=== PATIENT | female | born 1970 | race African-American/Black ===

== ENCOUNTER 2020-07-16 06:40 | Emergency (ER) | payer SELFPAY ==
[2020-07-16] MEDS ORDERED: Lidocaine 1% w/Epinephrine 1:100K 20 ML VIAL ONE (06:59)
== END 2020-07-16 07:55 | disposition home or self-care (01) ==
LOC: ERS 06:40
DX: L02.416 Cutaneous abscess of left lower limb (principal); F17.210 Nicotine dependence, cigarettes, uncomplicated; F17.290 Nicotine dependence, other tobacco product, uncomplicated
CPT/HCPCS: 10061

== ENCOUNTER 2021-12-27 16:08 | Inpatient (IN) | payer SELFPAY ==
[2021-12-27 16:37] LABS: Hemoglobin 15.1 g/dL (12.0-16.0); Mean Corpuscular Hemoglobin 28.5 pg (27.0-31.0); Mean Corpuscular Volume 86.5 fL (78.0-98.0); Mean Platelet Volume 7.9 fL (7.4-10.4); Platelet Count 271 thou/uL (130-400)
[2021-12-27 16:55] LABS: Lymphocytes 41 % (21-51); MDiff Complete? YES; Monocytes 6 % (0-10); Neutrophil 34 % (42-75); Platelet Morphology Comment Appears Adequate; RBC Morphology Normal; Reactive Lymphocytes 18 % (0-10)
[2021-12-27 16:56] LABS: ALT (SGPT) 20 U/L (8-55); AST (SGOT) 29 U/L (5-34); Albumin 4.5 g/dL (3.5-5.0); Alkaline Phosphatase 116 U/L (40-110); Anion Gap 15 mmol/L (10-20); BUN (Urea Nitrogen) 8 mg/dL (7.0-18.7); Bilirubin, Total 0.4 mg/dL (0.2-1.2); Calc. Creatinine Clearance 0 mL/min (70-130); Calcium 10.3 mg/dL (7.8-10.44); Carbon Dioxide 26 mmol/L (22-29); Chloride 101 mmol/L (98-107); Estimated GFR 67; Globulin 3.2 g/dL (2.4-3.5); Glucose 189 mg/dL (70-105); Lipase 18 U/L (8-78); Potassium 4.3 mmol/L (3.5-5.1); Protein, Total 7.7 g/dL (6.0-8.3); Sodium 138 mmol/L (136-145)
[2021-12-27] MEDS ORDERED: Heparin 25,000 units/D5W 500 ML ONE (17:33)
[2021-12-27] MEDS ORDERED: Aspirin Chewable 81 MG TAB ONE (17:35)
[2021-12-27 17:39] LABS: CKMB 26.4 ng/mL (0-6.6)
[2021-12-27] MEDS ORDERED: Heparin 10,000 UNITS/ 10 ML VIAL ONE (17:44)
[2021-12-27 18:04] LABS: PTT 32.4 sec (22.9-36.1); Prothrombin Time 12.8 sec (12.0-14.7)
[2021-12-27] MEDS ORDERED: Enoxaparin Sodium 60 MG/0.6 ML SYRINGE ONE (18:06)
[2021-12-27] MEDS ORDERED: Metoprolol Tartrate 5 MG/5 ML VIAL ONE (18:06)
[2021-12-27 18:43] LABS: Hemoglobin A1c 8.5 % (4.0-6.0)
[2021-12-27] MEDS ORDERED: Ondansetron PF 4 MG/2 ML Vial IVP PRN ×2 (20:00→20:33)
[2021-12-27] MEDS ORDERED: Acetaminophen 325 MG TAB PO PRN ×2 (20:00→20:33)
[2021-12-27] MEDS ORDERED: Ondansetron ODT 4 MG TAB SL PRN (20:00)
[2021-12-27 20:31] LABS: Troponin I 1.549 ng/mL (< 0.028)
[2021-12-27] MEDS ORDERED: Bisacodyl 5 MG TAB PO PRN (20:33)
[2021-12-27] MEDS ORDERED: Morphine 2 MG/ML VIAL SLOW IVP PRN (20:33)
[2021-12-27] MEDS ORDERED: Nitroglycerin 0.4 MG TAB (25 Tab Bottle) SL PRN (20:33)
[2021-12-27 21:12] VITALS: BMI 26.4
[2021-12-27] MEDS: Enoxaparin Sodium 60 MG/0.6 ML SYRINGE SC SCH (22:31)
[2021-12-27] MEDS: Nicotine 21 MG PATCH TD SCH (22:32)
[2021-12-27 23:37] LABS: Troponin I 2.543 ng/mL (< 0.028)
[2021-12-28 04:58] LABS: Anion Gap 15 mmol/L (10-20); BUN (Urea Nitrogen) 10 mg/dL (7.0-18.7); Calc. Creatinine Clearance 67 mL/min (70-130); Calcium 9.4 mg/dL (7.8-10.44); Carbon Dioxide 23 mmol/L (22-29); Cardiac Risk 9.6 (Less than 4.5); Chloride 103 mmol/L (98-107); Cholesterol 307 mg/dl (< 200 Desired); Estimated GFR 70; Glucose 200 mg/dL (70-105); HDL Cholesterol 32 mg/dL (>60 Neg Risk); Potassium 4.4 mmol/L (3.5-5.1); Sodium 137 mmol/L (136-145); Triglycerides 563 mg/dL (Less than 150)
[2021-12-28 05:30] LABS: Amphetamine Not Detected (NotDetected); Barbiturates Screen Not Detected (NotDetected); Benzodiazepine Screen Not Detected (NotDetected); Cocaine Metabolite Screen Not Detected (NotDetected); Methadone Not Detected (NotDetected); Methamphetamine Not Detected (NotDetected); Opiate Screen Not Detected (NotDetected); Oxycodone Screen Not Detected (NotDetected); Phencyclidine (PCP) Not Detected (NotDetected); THC/Cannabinoid Screen Not Detected (NotDetected); Tricyclic Screen Not Detected (NotDetected)
[2021-12-28 05:55] LABS: Band 2 % (5-11); Eosinophils 4 % (0-10); Hemoglobin 14.6 g/dL (12.0-16.0); Lymphocytes 57 % (21-51); MDiff Complete? YES; Mean Corpuscular HGB CONC 32.9 g/dL (32.0-36.0); Mean Corpuscular Hemoglobin 28.3 pg (27.0-31.0); Mean Corpuscular Volume 86.2 fL (78.0-98.0); Mean Platelet Volume 8.1 fL (7.4-10.4); Monocytes 5 % (0-10); Neutrophil 32 % (42-75); Platelet Count 240 thou/uL (130-400); RBC Distribution Width 13.6 % (11.5-14.5); Red Blood Cell (RBC) Count 5.15 mill/uL (4.20-5.40)
[2021-12-28] MEDS ORDERED: Communication Order-Pharmacy FS SCH (08:30)
[2021-12-28] MEDS: Aspirin 325 mg Enteric Coated Tablet PO SCH (09:21)
[2021-12-28] MEDS: Enoxaparin Sodium 60 MG/0.6 ML SYRINGE SC SCH ×2 (09:21→20:29)
[2021-12-28] MEDS: Ezetimibe 10 MG TAB PO SCH (09:21)
[2021-12-28] MEDS: Rosuvastatin 20 MG TAB PO SCH (09:21)
[2021-12-28] MEDS: Nitroglycerin 2% Ointment 1 INCH/1 GM Packet TOP SCH ×2 (09:22→20:28)
[2021-12-28] MEDS ORDERED: Moisturizing Cream (Eucerin) 113 GM JAR TOP PRN (13:00)
[2021-12-28] MEDS ORDERED: Acetaminophen 500 MG TAB PO PRN (13:00)
[2021-12-28] MEDS ORDERED: Sodium Chloride 0.65% Nasal 44 ML BOT EA NARE PRN (13:00)
[2021-12-28] MEDS ORDERED: Dextrose 50% Abboject 50 ML SYRINGE SLOW IVP PRN (13:00)
[2021-12-28] MEDS ORDERED: Loratadine 10 MG TAB PO PRN (13:00)
[2021-12-28] MEDS ORDERED: hydrALAZINE 20 MG/ML VIAL SLOW IVP PRN (13:00)
[2021-12-28] MEDS ORDERED: Dextrose 5% in Water 1,000 ML IV PRN (13:00)
[2021-12-28] MEDS ORDERED: Benzonatate 100 MG CAP PO PRN (13:00)
[2021-12-28] MEDS ORDERED: Labetalol HCl 100 MG/20 ML VIAL SLOW IVP PRN (13:00)
[2021-12-28] MEDS ORDERED: Artificial Tear Sol 15 ML BOT EA EYE PRN (13:00)
[2021-12-28] MEDS: Nicotine 21 MG PATCH TD SCH (20:28)
[2021-12-28] MEDS: HumaLOG 300 UNITS/3 ML VIAL SC PRN (23:30)
[2021-12-29] MEDS: HumaLOG 300 UNITS/3 ML VIAL SC PRN ×2 (05:29→21:03)
[2021-12-29 08:22] LABS: Anion Gap 12 mmol/L (10-20); BUN (Urea Nitrogen) 10 mg/dL (7.0-18.7); Calc. Creatinine Clearance 73 mL/min (70-130); Calcium 9.3 mg/dL (7.8-10.44); Carbon Dioxide 23 mmol/L (22-29); Chloride 104 mmol/L (98-107); Estimated GFR 78; Glucose 159 mg/dL (70-105); Potassium 4.4 mmol/L (3.5-5.1); Sodium 135 mmol/L (136-145)
[2021-12-29] MEDS: Ezetimibe 10 MG TAB PO SCH (09:32)
[2021-12-29] MEDS: Rosuvastatin 20 MG TAB PO SCH (09:32)
[2021-12-29] MEDS: Enoxaparin Sodium 60 MG/0.6 ML SYRINGE SC SCH ×2 (09:32→21:01)
[2021-12-29] MEDS: Aspirin 325 mg Enteric Coated Tablet PO SCH (09:32)
[2021-12-29] MEDS: Nitroglycerin 2% Ointment 1 INCH/1 GM Packet TOP SCH ×2 (09:39→21:01)
[2021-12-29] MEDS: Nicotine 21 MG PATCH TD SCH (21:01)
[2021-12-30 05:22] LABS: Anion Gap 15 mmol/L (10-20); BUN (Urea Nitrogen) 10 mg/dL (7.0-18.7); Calc. Creatinine Clearance 69 mL/min (70-130); Calcium 9.7 mg/dL (7.8-10.44); Carbon Dioxide 23 mmol/L (22-29); Chloride 104 mmol/L (98-107); Estimated GFR 73; Glucose 183 mg/dL (70-105); Potassium 4.2 mmol/L (3.5-5.1); Sodium 138 mmol/L (136-145)
[2021-12-30] MEDS: Sodium Chloride 0.9% 1,000 ML IV SCH ×2 (05:40→18:13)
[2021-12-30] MEDS: Rosuvastatin 20 MG TAB PO SCH (07:28)
[2021-12-30] MEDS: Ezetimibe 10 MG TAB PO SCH (07:28)
[2021-12-30] MEDS: Aspirin 325 mg Enteric Coated Tablet PO SCH (07:28)
[2021-12-30] MEDS ORDERED: Lidocaine 1% (PF) 30 ML VIAL ONE ×2 (07:55)
[2021-12-30] MEDS ORDERED: Midazolam HCl 2 mg/2 ml Vial ONE (08:34)
[2021-12-30] MEDS ORDERED: Fentanyl 100 MCG/2 ML VIAL ONE (08:34)
[2021-12-30] MEDS ORDERED: Metoprolol Tartrate 5 MG/5 ML VIAL ONE (08:45)
[2021-12-30] MEDS ORDERED: Nitroglycerin 100MG/250ML BOT 250 ML ONE (09:14)
[2021-12-30] MEDS ORDERED: Heparin 10,000 UNITS/ 10 ML VIAL ONE (09:19)
[2021-12-30] MEDS ORDERED: TICAGRELOR 90 MG TABLET ONE ×2 (10:15→10:19)
[2021-12-30] MEDS ORDERED: Iopamidol 370 76% 100 ML VIAL ONE (10:31)
[2021-12-30] MEDS ORDERED: Iopamidol 370 76% 50 ML VIAL FS ONE (10:31)
[2021-12-30] MEDS ORDERED: TICAGRELOR 90 MG TABLET PO SCH (11:00)
[2021-12-30] MEDS ORDERED: Fentanyl 100 MCG/2 ML VIAL SLOW IVP PRN (13:31)
[2021-12-30] MEDS ORDERED: fentaNYL Citrate/PF 100 MCG/2 ML SYRINGE ONE (13:54)
[2021-12-30] MEDS: Nitroglycerin 2% Ointment 1 INCH/1 GM Packet TOP SCH (15:53)
[2021-12-30] MEDS: Nicotine 21 MG PATCH TD SCH (21:09)
[2021-12-30] MEDS: TICAGRELOR 90 MG TABLET PO SCH (21:09)
[2021-12-30] MEDS: Famotidine 20 MG TAB PO SCH (21:09)
[2021-12-31 04:05] LABS: #Lymphocytes 3.8 thou/uL (1.20-3.40); #Monocytes 0.4 thou/uL (0.11-0.59); #Neutrophils 3.4 thou/uL (1.40-6.50); %Eosinophils 0.5 % (0.0-10.0); %Lymphocytes 49.5 % (21.0-51.0); %Monocytes 5.3 % (0.0-10.0); %Neutrophils 44.7 % (42.0-75.0); Hemoglobin 13.1 g/dL (12.0-16.0); Mean Corpuscular HGB CONC 32.9 g/dL (32.0-36.0); Mean Corpuscular Hemoglobin 28.4 pg (27.0-31.0); Mean Corpuscular Volume 86.3 fL (78.0-98.0); Mean Platelet Volume 8.3 fL (7.4-10.4); Platelet Count 193 thou/uL (130-400); RBC Distribution Width 13.6 % (11.5-14.5); Red Blood Cell (RBC) Count 4.61 mill/uL (4.20-5.40); White Blood Cell (WBC) Count 7.6 thou/uL (4.8-10.8)
[2021-12-31 04:25] LABS: ALT (SGPT) 17 U/L (8-55); AST (SGOT) 21 U/L (5-34); Albumin 3.6 g/dL (3.5-5.0); Alkaline Phosphatase 85 U/L (40-110); Anion Gap 9 mmol/L (10-20); BUN (Urea Nitrogen) 9 mg/dL (7.0-18.7); Bilirubin, Total 0.4 mg/dL (0.2-1.2); Calc. Creatinine Clearance 77 mL/min (70-130); Calcium 9.1 mg/dL (7.8-10.44); Carbon Dioxide 27 mmol/L (22-29); Chloride 107 mmol/L (98-107); Estimated GFR 83; Globulin 2.5 g/dL (2.4-3.5); Glucose 158 mg/dL (70-105); Protein, Total 6.1 g/dL (6.0-8.3); Sodium 139 mmol/L (136-145)
[2021-12-31] MEDS: HumaLOG 300 UNITS/3 ML VIAL SC PRN (05:52)
[2021-12-31 07:29] VITALS: BP 110/67; TEMP 98.5
[2021-12-31] MEDS ORDERED: Aspirin Chewable 81 MG TAB PO SCH (09:00)
[2021-12-31] MEDS: Famotidine 20 MG TAB PO SCH (09:02)
[2021-12-31] MEDS: Ezetimibe 10 MG TAB PO SCH (09:03)
[2021-12-31] MEDS: Rosuvastatin 20 MG TAB PO SCH (09:03)
[2021-12-31] MEDS: TICAGRELOR 90 MG TABLET PO SCH (09:03)
[2022-01-01] MEDS ORDERED: Lisinopril 2.5 MG TAB PO SCH (09:00)
== END 2021-12-31 11:10 | disposition home or self-care (01) | DRG 247 ==
LOC: ERS 16:08 → 2NO 18:06
PROVIDERS: ADMIT Family Medicine; ATTEND Family Medicine
PROC: 027034Z Dilation of Coronary Artery, One Artery with Drug-eluting Intraluminal Device, Percutaneous Approach (ICD-10-PCS; principal; 2021-12-30)
PROC: 4A023N7 Measurement of Cardiac Sampling and Pressure, Left Heart, Percutaneous Approach (ICD-10-PCS; 2021-12-30)
PROC: B2111ZZ Fluoroscopy of Multiple Coronary Arteries using Low Osmolar Contrast (ICD-10-PCS; 2021-12-30)
PROC: B2151ZZ Fluoroscopy of Left Heart using Low Osmolar Contrast (ICD-10-PCS; 2021-12-30)
DX: I21.4 Non-ST elevation (NSTEMI) myocardial infarction (principal); Z20.822 Contact with and (suspected) exposure to COVID-19; I25.10 Atherosclerotic heart disease of native coronary artery without angina pectoris; F17.210 Nicotine dependence, cigarettes, uncomplicated; R79.89 Other specified abnormal findings of blood chemistry; E11.65 Type 2 diabetes mellitus with hyperglycemia; E78.2 Mixed hyperlipidemia; Z82.49 Family history of ischemic heart disease and other diseases of the circulatory system; Z71.6 Tobacco abuse counseling
CPT/HCPCS: 36415; 36416; 71045; 71275; 74174; 80048; 80053; 80061; 80306; 82553; 83036; 83690; 84484; 85025; 85347; 85610; 85730; 92928; 93005; 93010; 93458; 93798; 96372; 96374; 96375; 99152; 99153; C9600; J1644; J1650; J1815; J2001; J2250; J3010; J7050; Q9967; U0003; U0005